=== PATIENT | female | born 1935 | race Caucasian/White ===

== ENCOUNTER 2022-08-05 06:07 | Observation (INO) | payer MEDICARE ==
--- NOTE | 2022-08-05 06:42 | ERPHSYRPT ---
- History of Present Illness Source: patient Exam Limitations: no limitations Occurred: this morning Quality: sharpness Severity of Pain-Max: mild (To moderate) Severity of Pain-Current: none Extremities Pain Location: arm: left Modifying Factors: Improves With: nothing <CLOTILDE BRISCOE - Last Filed: 08/05/22 07:40> <CHIKI ARREOLA - Last Filed: 08/05/22 12:56> - History of Present Illness Time Seen by Provider: 08/05/22 06:42 Physician History: This is a 86-year-old white female who has no history of coronary artery disease but has a family history of myocardial infarction's. The patient woke up out of his sleep at approximately 2 AM with pain in the posterior aspect of her left humerus. This symptom is similar to her mother and her brother who had a heart attack and this was the symptom they complained about. Patient denies shortness of breath. Patient denies chest pain. Patient denies any injury to that left upper extremity. Patient also was concerned because she was going out of town Sunday. At the time of this examination, the patient states that the pain in her left arm has resolved. Patient has a history of hypertension, hyperlipidemia and hypothyroidism. (CLOTILDE BRISCOE) Allergies/Adverse Reactions: amoxicillin [From Augmentin] Allergy (Verified 08/05/22 07:30) cefdinir [From Omnicef] Allergy (Verified 08/05/22 07:30) clarithromycin [From Biaxin] Allergy (Verified 08/05/22 07:30) clavulanic acid [From Augmentin] Allergy (Verified 08/05/22 07:30) levofloxacin [From Levaquin] Allergy (Verified 08/05/22 07:30) muscle relaxer Allergy (Uncoded 08/05/22 07:32) Travel Risk - International Travel Have you traveled outside of the country in past 3 weeks: No - Coronavirus Screening Are you exhibiting any of the following symptoms?: No Close contact with a COVID-19 positive Pt in past 14-21 Days: No <CLOTILDE BRISCOE - Last Filed: 08/05/22 07:40> - Review of Systems Constitutional: No Symptoms Eyes: No Symptoms Ears, Nose, & Throat: No Symptoms Respiratory: No Symptoms Cardiac: No Symptoms Abdominal/Gastrointestinal: No Symptoms Genitourinary Symptoms: No Symptoms Musculoskeletal: Other (Left arm pain) Skin: No Symptoms Neurological: No Symptoms Psychological: No Symptoms Endocrine: No Symptoms Hematologic/Lymphatic: No Symptoms Immunological/Allergic: No Symptoms All Other Systems: Reviewed and Negative <CLOTILDE BRISCOE - Last Filed: 08/05/22 07:40> - Past Medical History Pertinent Past Medical History: Yes Neurological History: No Pertinent History ENT History: No Pertinent History Cardiac History: No Pertinent History Respiratory History: No Pertinent History Endocrine Medical History: No Pertinent History Musculoskeletal History: No Pertinent History GI Medical History: No Pertinent History History: No Pertinent History Psycho-Social History: No Pertinent History - Past Surgical History Past Surgical History: Yes <CLOTILDE BRISCOE - Last Filed: 08/05/22 07:40> - Physical Exam General Appearance: no apparent distress, alert, anxiety Eyes, Ears, Nose, Throat Exam: normal ENT inspection, moist mucous membranes Neck Exam: normal inspection, non-tender, supple, full range of motion Cardiovascular/Respiratory Exam: chest non-tender, normal breath sounds, regular rate/rhythm, heart sounds normal, no respiratory distress Abdominal Exam: non-tender Back Exam: normal inspection, normal range of motion, No CVA tenderness, No vertebral tenderness Shoulder Exam: normal inspection, non-tender, no evidence of injury, normal ROM Elbow/Forearm Exam: normal inspection, non-tender, no evidence of injury, normal ROM Wrist Exam: normal inspection, non-tender, no evidence of injury, normal ROM Hand Exam: normal inspection, non-tender, no evidence of injury, normal ROM Neuro/Tendon Exam: normal sensation, normal motor functions, normal tendon functions Mental Status Exam: alert, oriented x 3, cooperative Skin Exam: normal color, warm, dry SpO2 Interpretation: normal O2 Delivery: Room Air <CLOTILDE BRISCOE - Last Filed: 08/05/22 07:40> - Nursing Vital Signs Nursing Vital Signs: Initial Vital Signs Blood Pressure 154/61 08/05/22 07:10 O2 Sat by Pulse Oximetry 96 08/05/22 07:10 Pain Scale Pain Intensity 0 - Course Nursing assessment & vital signs reviewed: Yes EKG Interpreted by Me: RATE (79), Sinus Rhythm, Left Rumney Deviation, NORMAL QRS, NORMAL ST-T, Other (No acute ischemic changes on today's twelve-lead EKG. There is a prolonged RI interval present.) <CLOTILDE BRISCOE - Last Filed: 08/05/22 07:40> Ordered Tests: Active Orders 24 hr Category Date Time Status Panel Monitor STAT Care 08/05/22 07:47 Active EKG-ER Only STAT Care 08/05/22 07:47 Active IV Insertion STAT Care 08/05/22 07:47 Active Pulse Oximetry (ED) STAT Care 08/05/22 07:47 Active CHEST 1 VIEW (PORTABLE) Stat Exams 08/05/22 07:47 Completed CHEST WITH CONTRAST [CT] Stat Exams 08/05/22 08:36 Taken BNPII [NT PRO BNPII] Stat Lab 08/05/22 Completed CBC W DIFF Stat Lab 08/05/22 08:00 Completed CMP Stat Lab 08/05/22 08:00 Completed D-DIMER QUANTITATIVE Stat Lab 08/05/22 08:00 Completed TROPONIN Q4H Lab 08/05/22 08:00 Completed TROPONIN Q4H Lab 08/05/22 11:43 Completed TROPONIN Q4H Lab 08/05/22 16:00 Ordered Medication Summary Discontinued Medications Generic Name Dose Route Start Last Admin Trade Name Freq PRN Reason Stop Dose Admin Aspirin 324 mg 08/05/22 10:30 08/05/22 10:40 Aspirin 81 Mg Tab.Chew PO 08/05/22 10:31 324 mg STAT ONE Administration Lab/Rad Data: Laboratory Result Diagrams 08/05/22 08:00 08/05/22 08:00 Laboratory Results 08/05/22 08/05/22 08/05/22 Range/Units Unknown 11:43 08:00 WBC (4.0-10.5) x10^3/uL RBC (4.1-5.4) x10^6/uL Hgb (12.0-16.0) g/dL Hct (35-47) % MCV (78-100) fL MCH (26-32) pg MCHC (32-36) g/dL RDW (11.5-14.0) % Plt Count (150-450) x10^3/uL MPV (7.5-11.0) fL Gran % (36.0-66.0) % Immature Gran % (Auto) (0.00-0.4) % Nucleat RBC Rel Count (0.00-0.1) % Eos # (Auto) (0-0.5) x10^3/uL Immature Gran # (Auto) (0.00-0.03) x10^3u/L Absolute Lymphs (auto) (1.0-4.6) x10^3/uL Absolute Monos (auto) (0.0-1.3) x10^3/uL Absolute Nucleated RBC (0.00-0.01) x10^3u/L Lymphocytes % (24.0-44.0) % Monocytes % (0.0-12.0) % Eosinophils % (0.00-5.0) % Basophils % (0.0-0.4) % Absolute Granulocytes (1.4-6.9) x10^3/uL Basophils # (0-0.4) x10^3/uL D-Dimer (0.0-0.50) mg/L Sodium (137-145) mmol/L Potassium (3.5-5.1) mmol/L Chloride (98-107) mmol/L Carbon Dioxide (22-30) mmol/L Anion Gap (5-15) MEQ/L BUN (7-17) mg/dL Creatinine (0.52-1.04) mg/dL Estimated GFR ML/MIN Glucose (74-106) mg/dL Calcium (8.4-10.2) mg/dL Total Bilirubin (0.2-1.3) mg/dL AST (14-36) U/L ALT (0-35) U/L Alkaline Phosphatase (38-126) U/L Troponin I < 0.012 < 0.012 (0.000-0.034) ng/mL NT-Pro-B Natriuret Pep 309 (<300) pg/mL Serum Total Protein (6.3-8.2) g/dL Albumin (3.5-5.0) g/dL 08/05/22 08/05/22 08/05/22 Range/Units 08:00 08:00 08:00 WBC 4.0 (4.0-10.5) x10^3/uL RBC 3.60 L (4.1-5.4) x10^6/uL Hgb 10.8 L (12.0-16.0) g/dL Hct 32.8 L (35-47) % MCV 91.1 (78-100) fL MCH 30.0 (26-32) pg MCHC 32.9 (32-36) g/dL RDW 13.0 (11.5-14.0) % Plt Count 242 (150-450) x10^3/uL MPV 8.8 (7.5-11.0) fL Gran % 55.2 (36.0-66.0) % Immature Gran % (Auto) 0.3 (0.00-0.4) % Nucleat RBC Rel Count 0.0 (0.00-0.1) % Eos # (Auto) 0.22 (0-0.5) x10^3/uL Immature Gran # (Auto) 0.01 (0.00-0.03) x10^3u/L Absolute Lymphs (auto) 1.01 (1.0-4.6) x10^3/uL Absolute Monos (auto) 0.42 (0.0-1.3) x10^3/uL Absolute Nucleated RBC 0.00 (0.00-0.01) x10^3u/L Lymphocytes % 25.4 (24.0-44.0) % Monocytes % 10.6 (0.0-12.0) % Eosinophils % 5.5 H (0.00-5.0) % Basophils % 3.0 (0.0-0.4) % Absolute Granulocytes 2.19 (1.4-6.9) x10^3/uL Basophils # 0.12 (0-0.4) x10^3/uL D-Dimer 1.00 H* (0.0-0.50) mg/L Sodium 137 (137-145) mmol/L Potassium 3.6 (3.5-5.1) mmol/L Chloride 101 (98-107) mmol/L Carbon Dioxide 27 (22-30) mmol/L Anion Gap 12.4 (5-15) MEQ/L BUN 14 (7-17) mg/dL Creatinine 0.70 (0.52-1.04) mg/dL Estimated GFR > 60.0 ML/MIN Glucose 104 (74-106) mg/dL Calcium 9.6 (8.4-10.2) mg/dL Total Bilirubin 0.50 (0.2-1.3) mg/dL AST 39 H (14-36) U/L ALT 22 (0-35) U/L Alkaline Phosphatase 51 (38-126) U/L Troponin I (0.000-0.034) ng/mL NT-Pro-B Natriuret Pep (<300) pg/mL Serum Total Protein 6.7 (6.3-8.2) g/dL Albumin 4.0 (3.5-5.0) g/dL - Progress Progress: improved Counseled pt/family regarding: lab results, diagnosis, need for follow-up, rad results <CLOTILDE BRISCOE - Last Filed: 08/05/22 07:40> - Progress Discussed with : Tim <CHIKI ARREOLA - Last Filed: 08/05/22 12:56> - Progress Progress Note: 08/05/22 07:44 Patient's care will be transferred to Dr. Arreola at shift change. He will follo w-up on the test results and make final disposition. (CLOTILDE BRISCOE) 08/05/22 12:53 Patient is checked out to me at shift change from Dr. Briscoe with pending work- up. Patient presented with left arm pain off and on since last night. Reports minimal discomfort currently. The EKG did not show ST elevations and has negative troponins. Chest x-ray negative for any acute cardiopulmonary findings. Patient does have elevated D-dimers but CTA is negative for PE or any other acute cardiopulmonary pathology. Patient has cardiac cath done long time ago, does not have any cardiac work-up done in the recent past. Does have risk factors for CAD, discussed with Dr. Davis and patient is being admitted for observation. (CHIKI ARREOLA) Medical Desision Making - Independent Historian Additional History obtained from: Child - Discussion of managment Care discussed with:: hospitalist (Dr. Davis) Reviewed:: Test results, Need for additional workup Agreed on:: Treatment plan, place in obs Will see patient: in hospital - Diagnostic Testing Diagnostic test were ordered, analyzed, and reviewed by me: Yes Radiological Interpretation: Reviewed by me, Teleradiologist Report - Risk of complications The pt has a high risk of morbidity or mortality based on: Decision regarding hospitilization or escalation of hosp level of care <CHIKI ARREOLA - Last Filed: 08/05/22 12:56> - Departure Departure Disposition: Home Critical Care Time: No <CLOTILDE BRISCOE - Last Filed: 08/05/22 07:40> <CHIKI ARREOLA - Last Filed: 08/05/22 12:56> - Departure Clinical Impression: Left arm pain, Chest pain, rule out acute myocardial infarction Condition: Stable Referrals: ANDREW SILVA [NON-STAFF PHY W/O PRIVILEGES] - Follow up/PCP as directed
--- NOTE | 2022-08-05 08:04 | XRAY ---
Indication: Chronic short of breath. Comparison: None Portable chest hyperinflated with minimal left lower lung fibrosis/scarring. No focal infiltrate, consolidation, or large effusion. Heart not enlarged with mitral valve calcifications. Bony thorax intact with osteopenia, mild/moderate degenerative changes, and mild double curvature scoliosis. Impression: Nonacute chest with chronic features.
[2022-08-05 08:05] LABS: Absolute Neutrophil Ct (ANC) 2.19 x10^3/uL (1.4-6.9); Basophil (Absolute #) 0.12 x10^3/uL (0-0.4); Eosinophil % 5.5 % (0.00-5.0); Eosinophil (Absolute #) 0.22 x10^3/uL (0-0.5); Hematocrit 32.8 % (35-47); Hemoglobin 10.8 g/dL (12.0-16.0); IMMATURE GRAN # 0.01 x10^3u/L (0.00-0.03); IMMATURE GRAN % 0.3 % (0.00-0.4); Lymphocyte (Absolute #) 1.01 x10^3/uL (1.0-4.6); Lymphocytes % 25.4 % (24.0-44.0); Mean Cell Volume 91.1 fL (78-100); Mean Corpuscular Hgb Concent. 32.9 g/dL (32-36); Mean Platelet Volume 8.8 fL (7.5-11.0); Monocyte (Absolute #) 0.42 x10^3/uL (0.0-1.3); Monocytes % 10.6 % (0.0-12.0); Neutrophil % 55.2 % (36.0-66.0); Platelet Count 242 x10^3/uL (150-450)
[2022-08-05 08:17] LABS: ALKALINE PHOSPHATASE 51 U/L (38-126); ANION GAP 12.4 MEQ/L (5-15); BLOOD UREA NITROGEN 14 mg/dL (7-17); CHLORIDE 101 mmol/L (98-107); Calcium 9.6 mg/dL (8.4-10.2); Carbon Dioxide 27 mmol/L (22-30); EST GLOMERULAR FILTRATION RATE > 60.0 ML/MIN; Glucose 104 mg/dL (74-106); Potassium 3.6 mmol/L (3.5-5.1); SGOT/AST 39 U/L (14-36); SGPT/ALT 22 U/L (0-35); SODIUM 137 mmol/L (137-145); Total Protein 6.7 g/dL (6.3-8.2)
[2022-08-05] MEDS ORDERED: BABY ASPIRIN 81 MG CHEW PO ONE (10:30)
[2022-08-05] MEDS ORDERED: DUONEB 0.5-3 MG/3 ml Neb IH PRN (13:58)
[2022-08-05] MEDS ORDERED: TYLENOL 325 MG PO PRN (13:58)
[2022-08-05] MEDS ORDERED: Zofran 4 MG/2 ML VIAL IV PRN (13:58)
[2022-08-05] MEDS ORDERED: MORPHINE SULFATE 2 MG INJ IV PRN (13:58)
[2022-08-05] MEDS ORDERED: PROTONIX 40 MG IV IV SCH (16:00)
[2022-08-05] MEDS: Vitamin C 500 MG PO SCH (16:49)
[2022-08-05] MEDS: Zestril 20 MG PO SCH (16:50)
[2022-08-05] MEDS: Protonix 40MG Tablet PO SCH (16:50)
[2022-08-05] MEDS: SYNTHROID 125 MCG PO SCH (16:50)
[2022-08-05] MEDS: THERAGRAN MULTIVITAMIN PO SCH (16:50)
[2022-08-05] MEDS: Tums EX 750 MG PO SCH (16:51)
[2022-08-05] MEDS: CLARITIN 10 MG PO SCH (16:51)
--- NOTE | 2022-08-05 19:46 | XRAY ---
CLINICAL HISTORY:sob/PE? COMPARISON:None; TECHNIQUES:Axial CT images of pulmonary angiogram were obtained after administration of intravenous contrast; FINDINGS: The pulmonary arteries have a normal appearance with no fillings defects to suggest a pulmonary embolus. Mild cardiomegaly. No pericardial effusion. No aneurysmal dilatation of the thoracic aorta. Mild atherosclerotic changes in the thoracic aorta. Minimal atelectatic changes in the lung bases. No consolidation, pleural effusion or pneumothorax. No significant mediastinal, hilar, or axillary lymphadenopathy. No discrete chest wall mass. The trachea and bronchi are patent. Fatty infiltration of the liver. Status postcholecystectomy. Fatty infiltration of the pancreatic parenchyma. The rest of the visualized upper abdominal viscera appears grossly unremarkable. Degenerative changes in the visualized spine. IMPRESSION: 1. No definite evidence of pulmonary embolism. 2. No acute pulmonary abnormality. 3. Mild cardiomegaly. Echocardiographic correlation. For further evaluation. Electronically Signed by: Viola Eli MD. (08/05/2022 08:47:57 CLEANING ATTENDANT)
[2022-08-05] MEDS: TIMOPTIC 0.5% 5 ML OPHTHALMIC OP SCH (21:29)
[2022-08-05] MEDS ORDERED: NON-FORMULARY ITEM (Pravastatin Sodium [Pravastatin Sodium] 80 MG Tablet) PO SCH (22:00)
[2022-08-05] MEDS ORDERED: ZOCOR 20MG PO SCH (22:00)
[2022-08-05] MEDS ORDERED: ECOTRIN 81 MG PO SCH (22:00)
[2022-08-05] MEDS ORDERED: ASPIRIN 81 MG PO SCH (22:00)
[2022-08-06 06:05] LABS: Absolute Neutrophil Ct (ANC) 1.79 x10^3/uL (1.4-6.9); BASOPHIL % 2.3 % (0.0-0.4); Basophil (Absolute #) 0.09 x10^3/uL (0-0.4); Eosinophil % 8.6 % (0.00-5.0); Eosinophil (Absolute #) 0.34 x10^3/uL (0-0.5); Hematocrit 29.6 % (35-47); Lymphocytes % 32.7 % (24.0-44.0); Mean Corpuscular Hemoglobin 30.4 pg (26-32); Mean Corpuscular Hgb Concent. 33.8 g/dL (32-36); Mean Platelet Volume 9.1 fL (7.5-11.0); Monocyte (Absolute #) 0.45 x10^3/uL (0.0-1.3); Monocytes % 11.3 % (0.0-12.0); Neutrophil % 45.1 % (36.0-66.0); Platelet Count 234 x10^3/uL (150-450); Red Blood Count 3.29 x10^6/uL (4.1-5.4); Red Cell Distribution Width 13.5 % (11.5-14.0)
[2022-08-06 06:13] LABS: ALBUMIN 3.3 g/dL (3.5-5.0); ALKALINE PHOSPHATASE 47 U/L (38-126); ANION GAP 9.5 MEQ/L (5-15); BLOOD UREA NITROGEN 12 mg/dL (7-17); CHLORIDE 99 mmol/L (98-107); Carbon Dioxide 28 mmol/L (22-30); Creatinine 1 0.75 mg/dL (0.52-1.04); EST GLOMERULAR FILTRATION RATE > 60.0 ML/MIN; Glucose 94 mg/dL (74-106); Potassium 3.5 mmol/L (3.5-5.1); SGOT/AST 36 U/L (14-36); SGPT/ALT 19 U/L (0-35); SODIUM 132 mmol/L (137-145); Total Protein 5.8 g/dL (6.3-8.2)
[2022-08-06 07:27] VITALS: BP 120/59; PULSE 58; O2SAT 96
[2022-08-06] MEDS: hydroDIURIL 25 MG PO SCH ×4 (07:43→09:04)
[2022-08-06] MEDS: TIMOPTIC 0.5% 5 ML OPHTHALMIC OP SCH ×2 (07:43→09:03)
[2022-08-06] MEDS: NORVASC 5 MG PO SCH ×2 (07:43→09:04)
[2022-08-06] MEDS: Xalatan OP SCH ×2 (07:44→09:03)
[2022-08-06] MEDS: SYNTHROID 125 MCG PO SCH (09:00)
[2022-08-06] MEDS: Vitamin C 500 MG PO SCH (09:00)
[2022-08-06] MEDS: THERAGRAN MULTIVITAMIN PO SCH (09:00)
[2022-08-06] MEDS: Protonix 40MG Tablet PO SCH (09:01)
[2022-08-06] MEDS: CLARITIN 10 MG PO SCH (09:01)
[2022-08-06] MEDS: Tums EX 750 MG PO SCH (09:02)
[2022-08-06] MEDS: Zestril 20 MG PO SCH (09:04)
[2022-08-06] MEDS ORDERED: NON-FORMULARY ITEM (Ascorbic Acid [Vitamin C] 1,000 MG Tablet) PO SCH (10:00)
[2022-08-06] MEDS ORDERED: NON-FORMULARY ITEM (Omeprazole [Omeprazole] 20 MG Capsule.Dr) PO SCH (10:00)
[2022-08-06] MEDS ORDERED: NON-FORMULARY ITEM (Cetirizine Hcl [Zyrtec] 10 MG Capsule) PO SCH (10:00)
[2022-08-06] MEDS ORDERED: NON-FORMULARY ITEM (Lisinopril [Lisinopril] 40 MG Tablet) PO SCH (10:00)
[2022-08-06] MEDS ORDERED: NON-FORMULARY ITEM (Amlodipine Besylate [Norvasc] 2.5 MG Tablet) PO SCH (10:00)
[2022-08-06] MEDS ORDERED: NON-FORMULARY ITEM (Multivitamin [Multivitamin] 1 EACH Tablet) PO SCH (10:00)
[2022-08-06] MEDS ORDERED: NON-FORMULARY ITEM (Calcium Carbonate [Calcium] 500 MG Tablet) PO SCH (10:00)
--- NOTE | 2022-08-29 22:52 | PCM.SSS ---
History of Present Illness - Chief Complaint Chief Complaint: chest pain,left arm pain Date: 08/06/22 History of Present Illness: is an 86-year-old white female who has no history of coronary artery disease but has a family history of myocardial infarction's. The patient woke up out of his sleep at approximately 2 AM with pain in the posterior aspect of her left humerus. This symptom is similar to her mother and her brother who had a heart attack and this was the symptom they complained about. Patient denies shortness of breath. Patient denies chest pain. Patient denies any injury to that left upper extremity. Patient also was concerned because she was going out of town Sunday. At the time of this examination, the patient states that the pain in her left arm has resolved. Patient has a history of hypertension, hyperlipidemia and hypothyroidism. - Review of Systems Constitutional: No Fever, No Chills Eyes: No Symptoms Ears, Nose, & Throat: No Symptoms Respiratory: No Cough, No Short Of Breath Cardiac: No Chest Pain, No Edema, No Syncope Abdominal/Gastrointestinal: No Abdominal Pain, No Nausea, No Vomiting, No Diarrhea Genitourinary Symptoms: No Dysuria Musculoskeletal: Other (posterior left arm pain), No Back Pain, No Neck Pain Skin: No Rash Neurological: No Dizziness, No Focal Weakness, No Sensory Changes Psychological: No Symptoms Endocrine: No Symptoms Hematologic/Lymphatic: No Symptoms Immunological/Allergic: No Symptoms Medications & Allergies Home Medications: Home Medication List Amlodipine Besylate [Norvasc] 2.5 mg PO DAILY 08/05/22 [History Confirmed 08/05/22] Ascorbic Acid [Vitamin C] 1,000 mg PO DAILY 08/05/22 [History Confirmed 08/05/22] Aspirin [Aspirin EC] 81 mg PO HS 08/05/22 [History Confirmed 08/05/22] Calcium Carbonate [Calcium] 1,000 mg PO DAILY 08/05/22 [History Confirmed 08/05/22] Cetirizine HCl [Zyrtec] 10 mg PO DAILY 08/05/22 [History Confirmed 08/05/22] Latanoprost 1 drop OP DAILY 08/05/22 [History Confirmed 08/05/22] Levothyroxine Sodium 125 mcg PO DAILY 08/05/22 [History Confirmed 08/05/22] Multivitamin 1 each PO DAILY 08/05/22 [History Confirmed 08/05/22] Omeprazole 20 mg PO DAILY 08/05/22 [History Confirmed 08/05/22] Pravastatin Sodium 80 mg PO HS 08/05/22 [History Confirmed 08/05/22] Timolol Maleate 0.5% Eye [Timoptic 0.5% 5 ml Ophthalmic] 1 drop OP BID 08/05/22 [History Confirmed 08/05/22] Triamterene/Hydrochlorothiazid [Triamterene-Hctz 75-50 mg Tab] 1 each PO DAILY 08/05/22 [History Confirmed 08/05/22] hydroCHLOROthiazide [Hydrochlorothiazide] 25 mg PO DAILY 08/05/22 [History Confirmed 08/05/22] lisinopriL [Lisinopril] 40 mg PO DAILY 08/05/22 [History Confirmed 08/05/22] Nitroglycerin 0.4 mg Tablet [Nitrostat 0.4 MG Tablet] 0.4 mg SL Q5MIN PRN MR X 3 PRN 30 Days #30 08/06/22 [Rx] Allergies/Adverse Reactions: Allergies Allergy/AdvReac Type Severity Reaction Status Date / Time amoxicillin [From Augmentin] Allergy Verified 08/05/22 07:30 cefdinir [From Omnicef] Allergy Verified 08/05/22 07:30 clarithromycin [From Biaxin] Allergy Verified 08/05/22 07:30 clavulanic acid Allergy Verified 08/05/22 07:30 [From Augmentin] levofloxacin [From Levaquin] Allergy Verified 08/05/22 07:30 muscle relaxer Allergy Uncoded 08/05/22 07:32 - Past Medical History Past Medical History: Yes Neurological History: No Pertinent History ENT History: Glaucoma Cardiac History: Angina, Hypertension Respiratory History: No Pertinent History Endocrine Medical History: Hypothyroidism Musculoskelatal History: Arthritis, Osteoarthritis GI Medical History: Diverticulitis History: No Pertinent History Pyscho-Social History: No Pertinent History Reproductive Disorders: No Pertinent History - Female History Are you now?: No - Past Surgical History Past Surgical History: Yes Neuro Surgical History: No Pertinent History Cardiac History: No Pertinent History Respiratory Surgery: No Pertinent History GI Surgical History: Cholecystectomy Genitourinary Surgical Hx: No Pertinent History Musculskeletal Surgical Hx: No Pertinent History Female Surgical History: No Pertinent History - Social History Smoking Status: Never smoker Exposure to second hand smoke: No Alcohol: None Drug Use: none - Physical Exam General Appearance: no apparent distress, alert Neurologic Exam: alert, oriented x 3, cooperative, normal mood/affect, nml cerebellar function, nml station & gait, sensation nml, No motor deficits Eye Exam: PERRL/EOMI, eyes nml inspection Ears, Nose, Throat Exam: normal ENT inspection, TMs normal, pharynx normal, moist mucous membranes Neck Exam: normal inspection, non-tender, supple, full range of motion Respiratory Exam: normal breath sounds, lungs clear, No respiratory distress Cardiovascular Exam: regular rate/rhythm, normal heart sounds, normal peripheral pulses Gastrointestinal/Abdomen Exam: soft, normal bowel sounds, No tenderness, No mass Back Exam: normal inspection, normal range of motion, No CVA tenderness, No vertebral tenderness Extremity Exam: normal inspection, normal range of motion, pelvis stable Skin Exam: normal color, warm, dry, No rash Lymphatic Exam: No adenopathy Assessment/Plan (1) Chest pain, rule out acute myocardial infarction Status: Acute Code(s): R07.9 - CHEST PAIN, UNSPECIFIED (2) Left arm pain Status: Acute Code(s): M79.602 - PAIN IN LEFT ARM Hospital Summary - Hospital Course Hospital Course: Pt. admitted for symptoms and family history of similar pain with ACS, NV was ruled out and patient with no further pain was ready for discharge with further evaluation in near future including lexiscan. Pt. ready for discharge to home. - Vitals & Intake/Output Vital Signs: Vital Signs Temperature 97.9 F 08/06/22 07:27 Pulse Rate 58 L 08/06/22 07:27 Respiratory Rate 16 08/06/22 07:27 Blood Pressure 120/59 08/06/22 07:27 O2 Sat by Pulse Oximetry 96 08/06/22 07:27 - Lab Result Diagrams: 08/06/22 05:20 08/06/22 05:20 - Procedures and Test Procedures and Tests throughout Hospitalization: Therapy Orders & Screens 08/06/22 10:42 STRESS TEST [Schedule Outpt Stress Test] ROUTINE Comment: Diagnosis: chest pain,left arm pain Schedule Outpt Stress Test: Cardiolyte Stress Test Cardiolite Stress Test: Cardiolite Lexiscan 08/06/22 11:35 Cardiolite Stress Test-RT ONCE Comment: Reason For Exam: Diagnosis: chest pain,left arm pain - Discharge Discharge Date: 08/06/22 Disposition: Home, Self-Care Condition: Stable Prescriptions: New Nitroglycerin 0.4 mg Tablet [Nitrostat 0.4 MG Tablet] 0.4 mg SL Q5MIN PRN MR X 3 PRN 30 Days #30 PRN Reason: Chest Pain Continue Timolol Maleate 0.5% Eye [Timoptic 0.5% 5 ml Ophthalmic] 1 drop OP BID Levothyroxine Sodium 125 mcg PO DAILY Pravastatin Sodium 80 mg PO HS lisinopriL [Lisinopril] 40 mg PO DAILY Omeprazole 20 mg PO DAILY hydroCHLOROthiazide [Hydrochlorothiazide] 25 mg PO DAILY Latanoprost 1 drop OP DAILY Cetirizine HCl [Zyrtec] 10 mg PO DAILY Amlodipine Besylate [Norvasc] 2.5 mg PO DAILY Calcium Carbonate [Calcium] 1,000 mg PO DAILY Ascorbic Acid [Vitamin C] 1,000 mg PO DAILY Multivitamin 1 each PO DAILY Aspirin [Aspirin EC] 81 mg PO HS Triamterene/Hydrochlorothiazid [Triamterene-Hctz 75-50 mg Tab] 1 each PO DAILY Outpatient Orders: Stress Test: Cyndy Facility: [facility], Location: RESPIRATORY THERAPY Instructions: Chest Pain (DC), Nitroglycerin
== END 2022-08-06 11:50 | disposition home or self-care (01) ==
LOC: ED 06:07 → MED SURG 13:57
PROVIDERS: ADMIT Family Medicine; ATTEND Family Medicine
DX: R07.9 Chest pain, unspecified (principal); M79.602 Pain in left arm; I10 Essential (primary) hypertension; E78.5 Hyperlipidemia, unspecified; E03.9 Hypothyroidism, unspecified; Z82.49 Family history of ischemic heart disease and other diseases of the circulatory system; Z79.899 Other long term (current) drug therapy; Z20.828 Contact with and (suspected) exposure to other viral communicable diseases
CPT/HCPCS: 36000; 36415; 71045; 71260; 80053; 83880; 84484; 85025; 85379; 93005; 93041; 93268; 94760; 99285; A9270-GY; G0378

== ENCOUNTER 2023-03-09 14:05 | Emergency (ER) | payer MEDICARE, OTHER ==
--- NOTE | 2023-03-09 14:09 | ERPHSYRPT ---
- History of Present Illness Time Seen by Provider: 03/09/23 14:09 Source: patient, family Exam Limitations: no limitations Physician History: This is an 87-year-old white female patient who had multiple complaints including left anterior shoulder pain, left arm pain, nausea, hypertension and fatigue. Patient stated the symptoms of the left anterior shoulder pain lasted about 45 minutes. Patient took a nitroglycerin tablet at 8 AM. Patient reports that her systolic blood pressure was 190 before taking the nitroglycerin. The subsequent reading was 170. Upon arrival to the emergency department, her systolic blood pressure is 145. She does have some nausea. She denies chest pain. She denies shortness of breath. She denies abdominal pain. She has not had any diarrhea. Patient has a history of hypertension, hyperlipidemia, chronic angina, hypothyroidism, arthritis and history of diverticulitis. Patient's mill tender washing is Dr. Salgado Timing/Duration: today Severity: mild Associated Symptoms: nausea, weakness, No abdominal pain, No shortness of breath, No cough, No chest pain Allergies/Adverse Reactions: amoxicillin [From Augmentin] Allergy (Verified 03/09/23 14:37) cefdinir [From Omnicef] Allergy (Verified 03/09/23 14:37) clarithromycin [From Biaxin] Allergy (Verified 03/09/23 14:37) clavulanic acid [From Augmentin] Allergy (Verified 03/09/23 14:37) levofloxacin [From Levaquin] Allergy (Verified 03/09/23 14:37) muscle relaxer Allergy (Uncoded 03/09/23 14:37) Home Medications: Amlodipine Besylate [Norvasc] 2.5 mg PO DAILY 08/05/22 [History] Aspirin [Aspirin EC] 81 mg PO HS 08/05/22 [History] Calcium Carbonate [Calcium] 1,000 mg PO DAILY 08/05/22 [History] Cetirizine HCl [Zyrtec] 10 mg PO DAILY 08/05/22 [History] Levothyroxine Sodium 125 mcg PO DAILY 08/05/22 [History] Multivitamin 1 each PO DAILY 08/05/22 [History] Omeprazole 20 mg PO DAILY 08/05/22 [History] Pravastatin Sodium 80 mg PO HS 08/05/22 [History] Timolol Maleate 0.5% Eye [Timoptic 0.5% 5 ml Ophthalmic] 1 drop OP BID 08/05/22 [History] hydroCHLOROthiazide [Hydrochlorothiazide] 25 mg PO DAILY 08/05/22 [History] Losartan Potassium 25 mg PO DAILY 03/09/23 [History] Hx Tetanus, Diphtheria Vaccination/Date Given: No Hx Influenza Vaccination/Date Given: Yes Hx Pneumococcal Vaccination/Date Given: Yes Travel Risk - International Travel Have you traveled outside of the country in past 3 weeks: No - Coronavirus Screening Are you exhibiting any of the following symptoms?: Yes Symptoms: Headaches/Body Aches/Fatigue Close contact with a COVID-19 positive Pt in past 14-21 Days: No - Vaccine Status Have you recieved a Covid-19 vaccination: Yes Professional Athlete: Unknown - Vaccination Dates Dates if Unknown: ? - Review of Systems Constitutional: Weakness Eyes: No Symptoms Ears, Nose, & Throat: No Symptoms Respiratory: No Symptoms Cardiac: No Symptoms Abdominal/Gastrointestinal: Nausea Genitourinary Symptoms: No Symptoms Musculoskeletal: No Symptoms Skin: No Symptoms Neurological: No Symptoms Psychological: No Symptoms Endocrine: No Symptoms Hematologic/Lymphatic: No Symptoms Immunological/Allergic: No Symptoms All Other Systems: Reviewed and Negative - Past Medical History Pertinent Past Medical History: Yes Neurological History: No Pertinent History ENT History: Glaucoma Cardiac History: Angina, Hypertension Respiratory History: No Pertinent History Endocrine Medical History: Hypothyroidism Musculoskeletal History: Arthritis, Osteoarthritis GI Medical History: Diverticulitis History: No Pertinent History Psycho-Social History: No Pertinent History Female Reproductive Disorders: No Pertinent History - Past Surgical History Past Surgical History: Yes Neuro Surgical History: No Pertinent History Cardiac: No Pertinent History Respiratory: No Pertinent History Gastrointestinal: Cholecystectomy Genitourinary: No Pertinent History Musculoskeletal: No Pertinent History Female Surgical History: No Pertinent History - Social History Smoking Status: Never smoker Exposure to second hand smoke: No Drug Use: none Patient Lives Alone: No - Nursing Vital Signs Nursing Vital Signs: Initial Vital Signs Pulse Rate 71 03/09/23 14:26 Respiratory Rate 16 03/09/23 14:26 Blood Pressure 173/57 03/09/23 14:26 O2 Sat by Pulse Oximetry 95 03/09/23 14:26 Pain Scale Pain Intensity 0 - Physical Exam General Appearance: no apparent distress, alert Eye Exam: PERRL/EOMI, eyes nml inspection Ears, Nose, Throat Exam: normal ENT inspection, moist mucous membranes Neck Exam: normal inspection, non-tender, supple, full range of motion Respiratory Exam: normal breath sounds, lungs clear, respiratory distress, airw ay intact, No chest tenderness Cardiovascular Exam: regular rate/rhythm, normal heart sounds, normal peripheral pulses Gastrointestinal/Abdomen Exam: soft, normal bowel sounds, No tenderness Pelvic Exam: not done Rectal Exam: not done Back Exam: normal inspection, normal range of motion, No CVA tenderness, No vertebral tenderness Extremity Exam: normal inspection, normal range of motion, pelvis stable Neurologic Exam: alert, oriented x 3, cooperative, mail order clerk II-XII nml as tested, normal mood/affect, nml cerebellar function, nml station & gait, sensation nml Skin Exam: normal color, warm, dry Lymphatic Exam: No adenopathy SpO2 Interpretation: normal O2 Delivery: Room Air - Course Nursing assessment & vital signs reviewed: Yes EKG Interpreted by Me: RATE (69), Left [place] Deviation, NORMAL INTERVALS, Other (PVC. No acute ischemic changes.) Ordered Tests: Active Orders 24 hr Category Date Time Status EKG-ER Only STAT Care 03/09/23 14:53 Active IV Insertion STAT Care 03/09/23 14:53 Active Pulse Oximetry (ED) STAT Care 03/09/23 14:53 Active BLOOD CULTURE Stat Lab 03/09/23 14:54 Received CBC W DIFF Stat Lab 03/09/23 15:10 Completed CMP Stat Lab 03/09/23 15:10 Completed MONO SCREEN Stat Lab 03/09/23 Completed NT PRO BNPII Stat Lab 03/09/23 15:10 Completed PROTIME WITH INR Stat Lab 03/09/23 15:10 Completed TROPONIN Q4H Lab 03/09/23 15:10 Completed TROPONIN Q4H Lab 03/09/23 19:00 Ordered TROPONIN Q4H Lab 03/09/23 23:00 Ordered TSH, 3RD Generation Stat Lab 03/09/23 15:10 Completed UA W/RFX UR CULTURE Stat Lab 03/09/23 17:30 Completed Medication Summary Generic Name Dose Route Start Last Admin Trade Name Freq PRN Reason Stop Dose Admin Sodium Chloride 1,000 mls @ 100 mls/hr 03/09/23 15:00 03/09/23 15:07 Sodium Chloride 0.9% 1000 Ml IV 04/08/23 14:59 100 mls/hr .Q10H MLELISA Administration Discontinued Medications Generic Name Dose Route Start Last Admin Trade Name Huy PRN Reason Stop Dose Admin Aspirin 243 mg 03/09/23 14:53 03/09/23 15:07 Aspirin 81 Mg Tab.Chew PO 03/09/23 14:54 243 mg STAT ONE Administration Aspirin Confirm 03/09/23 15:05 Aspirin 81 Mg Tab.Chew Administered 03/09/23 15:06 Dose 243 mg .ROUTE .STK-MED ONE Ondansetron HCl 4 mg 03/09/23 15:35 03/09/23 15:40 Zofran 4 Mg/Udtablet Orally Disintegrating PO 03/09/23 15:36 4 mg STAT ONE Administration Ondansetron HCl Confirm 03/09/23 15:39 Zofran 4 Mg/Udtablet Orally Disintegrating Administered 03/09/23 15:40 Dose 4 mg .ROUTE .STK-MED ONE Lab/Rad Data: Laboratory Result Diagrams 03/09/23 15:10 03/09/23 15:10 Laboratory Results 03/09/23 03/09/23 03/09/23 Range/Units Unknown 17:30 15:10 WBC (4.0-10.5) x10^3/uL RBC (4.1-5.4) x10^6/uL Hgb (12.0-16.0) g/dL Hct (35-47) % MCV (78-100) fL MCH (26-32) pg MCHC (32-36) g/dL RDW (11.5-14.0) % Plt Count (150-450) x10^3/uL MPV (7.5-11.0) fL Gran % (36.0-66.0) % Immature Gran % (Auto) (0.00-0.4) % Nucleat RBC Rel Count (0.00-0.1) % Eos # (Auto) (0-0.5) x10^3/uL Immature Gran # (Auto) (0.00-0.03) x10^3u/L Absolute Lymphs (auto) (1.0-4.6) x10^3/uL Absolute Monos (auto) (0.0-1.3) x10^3/uL Absolute Nucleated RBC (0.00-0.01) x10^3u/L Lymphocytes % (24.0-44.0) % Monocytes % (0.0-12.0) % Eosinophils % (0.00-5.0) % Basophils % (0.0-0.4) % Absolute Granulocytes (1.4-6.9) x10^3/uL Basophils # (0-0.4) x10^3/uL PT (9.4-12.5) SECONDS INR (0.8-3.0) Sodium (137-145) mmol/L Potassium (3.5-5.1) mmol/L Chloride (98-107) mmol/L Carbon Dioxide (22-30) mmol/L Anion Gap (5-15) MEQ/L BUN (7-17) mg/dL Creatinine (0.52-1.04) mg/dL Estimated GFR ML/MIN Glucose (74-106) mg/dL Calcium (8.4-10.2) mg/dL Total Bilirubin (0.2-1.3) mg/dL AST (14-36) U/L ALT (0-35) U/L Alkaline Phosphatase (38-126) U/L Troponin I (0.000-0.034) ng/mL NT-Pro-B Natriuret Pep (<300) pg/mL Serum Total Protein (6.3-8.2) g/dL Albumin (3.5-5.0) g/dL Free T4 (0.78-2.19) ng/dL TSH 3rd Generation (0.47-4.68) mIU/L Urine Color Yellow (Yellow) Urine Appearance Clear (Clear) Urine pH 7.0 (4.6-8.0) Ur Specific [place] <=1.005 (1.005-1.030) Urine Protein Negative (Negative) Urine Glucose (UA) Negative (Negative) mg/dL Urine Ketones Negative (Negative) Urine Blood Negative (Negative) Urine Nitrite Negative (Negative) Urine Bilirubin Negative (Negative) Urine Urobilinogen 0.2 (0.2) mg/dL Ur Leukocyte Esterase Negative (Negative) U Hyaline Cast (Auto) NONE SEEN (0-2) /LPF Urine Microscopic RBC 0-2 (0-5) /HPF Urine Microscopic WBC 0-2 (0-5) /HPF Ur Epithelial Cells None Seen (None Seen) /HPF Urine Bacteria None Seen (None Seen) /HPF Urine Culture Reflexed NO (NO) Monoscreen NEGATIVE (NEGATIVE) Influenza Type A Ag NEGATIVE (NEGATIVE) Influenza Type B Ag NEGATIVE (NEGATIVE) RSV (PCR) NEGATIVE (NEGATIVE) SARS-CoV-2 (PCR) NEGATIVE (NEGATIVE) 03/09/23 03/09/23 03/09/23 Range/Units 15:10 15:10 15:10 WBC (4.0-10.5) x10^3/uL RBC (4.1-5.4) x10^6/uL Hgb (12.0-16.0) g/dL Hct (35-47) % MCV (78-100) fL MCH (26-32) pg MCHC (32-36) g/dL RDW (11.5-14.0) % Plt Count (150-450) x10^3/uL MPV (7.5-11.0) fL Gran % (36.0-66.0) % Immature Gran % (Auto) (0.00-0.4) % Nucleat RBC Rel Count (0.00-0.1) % Eos # (Auto) (0-0.5) x10^3/uL Immature Gran # (Auto) (0.00-0.03) x10^3u/L Absolute Lymphs (auto) (1.0-4.6) x10^3/uL Absolute Monos (auto) (0.0-1.3) x10^3/uL Absolute Nucleated RBC (0.00-0.01) x10^3u/L Lymphocytes % (24.0-44.0) % Monocytes % (0.0-12.0) % Eosinophils % (0.00-5.0) % Basophils % (0.0-0.4) % Absolute Granulocytes (1.4-6.9) x10^3/uL Basophils # (0-0.4) x10^3/uL PT 10.4 (9.4-12.5) SECONDS INR 0.95 (0.8-3.0) Sodium 136 L (137-145) mmol/L Potassium 3.5 (3.5-5.1) mmol/L Chloride 100 (98-107) mmol/L Carbon Dioxide 27 (22-30) mmol/L Anion Gap 12.7 (5-15) MEQ/L BUN 20 H (7-17) mg/dL Creatinine 0.79 (0.52-1.04) mg/dL Estimated GFR 73.3 ML/MIN Glucose 116 H (74-106) mg/dL Calcium 9.9 (8.4-10.2) mg/dL Total Bilirubin 0.60 (0.2-1.3) mg/dL AST 33 (14-36) U/L ALT 21 (0-35) U/L Alkaline Phosphatase 57 (38-126) U/L Troponin I < 0.012 (0.000-0.034) ng/mL NT-Pro-B Natriuret Pep 353 (<300) pg/mL Serum Total Protein 6.9 (6.3-8.2) g/dL Albumin 4.2 (3.5-5.0) g/dL Free T4 (0.78-2.19) ng/dL TSH 3rd Generation < 0.015 L (0.47-4.68) mIU/L Urine Color (Yellow) Urine Appearance (Clear) Urine pH (4.6-8.0) Ur Specific [place] (1.005-1.030) Urine Protein (Negative) Urine Glucose (UA) (Negative) mg/dL Urine Ketones (Negative) Urine Blood (Negative) Urine Nitrite (Negative) Urine Bilirubin (Negative) Urine Urobilinogen (0.2) mg/dL Ur Leukocyte Esterase (Negative) U Hyaline Cast (Auto) (0-2) /LPF Urine Microscopic RBC (0-5) /HPF Urine Microscopic WBC (0-5) /HPF Ur Epithelial Cells (None Seen) /HPF Urine Bacteria (None Seen) /HPF Urine Culture Reflexed (NO) Monoscreen (NEGATIVE) Influenza Type A Ag (NEGATIVE) Influenza Type B Ag (NEGATIVE) RSV (PCR) (NEGATIVE) SARS-CoV-2 (PCR) (NEGATIVE) 03/09/23 03/09/23 Range/Units 15:10 14:53 WBC 5.8 (4.0-10.5) x10^3/uL RBC 3.98 L (4.1-5.4) x10^6/uL Hgb 12.0 (12.0-16.0) g/dL Hct 36.3 (35-47) % MCV 91.2 (78-100) fL MCH 30.2 (26-32) pg MCHC 33.1 (32-36) g/dL RDW 12.4 (11.5-14.0) % Plt Count 249 (150-450) x10^3/uL MPV 9.8 (7.5-11.0) fL Gran % 67.5 H (36.0-66.0) % Immature Gran % (Auto) 0.2 (0.00-0.4) % Nucleat RBC Rel Count 0.0 (0.00-0.1) % Eos # (Auto) 0.04 (0-0.5) x10^3/uL Immature Gran # (Auto) 0.01 (0.00-0.03) x10^3u/L Absolute Lymphs (auto) 1.33 (1.0-4.6) x10^3/uL Absolute Monos (auto) 0.45 (0.0-1.3) x10^3/uL Absolute Nucleated RBC 0.00 (0.00-0.01) x10^3u/L Lymphocytes % 22.9 L (24.0-44.0) % Monocytes % 7.8 (0.0-12.0) % Eosinophils % 0.7 (0.00-5.0) % Basophils % 0.9 (0.0-0.4) % Absolute Granulocytes 3.92 (1.4-6.9) x10^3/uL Basophils # 0.05 (0-0.4) x10^3/uL PT (9.4-12.5) SECONDS INR (0.8-3.0) Sodium (137-145) mmol/L Potassium (3.5-5.1) mmol/L Chloride (98-107) mmol/L Carbon Dioxide (22-30) mmol/L Anion Gap (5-15) MEQ/L BUN (7-17) mg/dL Creatinine (0.52-1.04) mg/dL Estimated GFR ML/MIN Glucose (74-106) mg/dL Calcium (8.4-10.2) mg/dL Total Bilirubin (0.2-1.3) mg/dL AST (14-36) U/L ALT (0-35) U/L Alkaline Phosphatase (38-126) U/L Troponin I (0.000-0.034) ng/mL NT-Pro-B Natriuret Pep (<300) pg/mL Serum Total Protein (6.3-8.2) g/dL Albumin (3.5-5.0) g/dL Free T4 2.62 H (0.78-2.19) ng/dL TSH 3rd Generation (0.47-4.68) mIU/L Urine Color (Yellow) Urine Appearance (Clear) Urine pH (4.6-8.0) Ur Specific [place] (1.005-1.030) Urine Protein (Negative) Urine Glucose (UA) (Negative) mg/dL Urine Ketones (Negative) Urine Blood (Negative) Urine Nitrite (Negative) Urine Bilirubin (Negative) Urine Urobilinogen (0.2) mg/dL Ur Leukocyte Esterase (Negative) U Hyaline Cast (Auto) (0-2) /LPF Urine Microscopic RBC (0-5) /HPF Urine Microscopic WBC (0-5) /HPF Ur Epithelial Cells (None Seen) /HPF Urine Bacteria (None Seen) /HPF Urine Culture Reflexed (NO) Monoscreen (NEGATIVE) Influenza Type A Ag (NEGATIVE) Influenza Type B Ag (NEGATIVE) RSV (PCR) (NEGATIVE) SARS-CoV-2 (PCR) (NEGATIVE) - Progress Progress: improved, re-examined Progress Note: 03/09/23 18:47 Patient's medical issue is 1 of moderate complexity. The level of complexity and the workup performed is based on the review of the patient's past medical history, review of the patient's medication list, review the patient's drug allergy list, history of present illness and physical findings on examination. This patient's medical workup includes placement of intravenous line, infusion of intravenous saline, free T4, TSH, troponin level, twelve-lead EKG, urinalysis, CBC, CMP and viral swabs including monotest. 03/09/23 18:48 I reviewed the laboratory data. The patient appears to have hypothyroidism with a elevated free T4 and a low TSH. She will need to follow-up with her primary care physician to adjust these medications if indicated. Counseled pt/family regarding: lab results, diagnosis, need for follow-up Medical Desision Making - Independent Historian Additional History obtained from: Family - Diagnostic Testing Diagnostic test were ordered, analyzed, and reviewed by me: Yes - Risk of complications The pt has a mod risk of morbidity or mortality based on: Need for prescription drug management - Departure Departure Disposition: Home Clinical Impression: Hyperthyroidism Condition: Stable Critical Care Time: No Referrals: REFUGIO WEBB [Primary Care Provider] - Follow up/PCP as directed Additional Instructions: Drink plenty of clear liquids. Advance your diet slowly. Avoid fatty greasy spicy foods. Contact your primary care provider on 03/02/2023, to address your thyroid medication and to make a follow-up appointment in the next 3 to 5 days.
[2023-03-09] MEDS ORDERED: BABY ASPIRIN 81 MG CHEW PO ONE (14:53)
[2023-03-09] MEDS ORDERED: Sodium Chloride 0.9% 1000 ML 1,000 ML IV SCH (15:00)
[2023-03-09 15:02] VITALS: TEMP 98.1
[2023-03-09] MEDS ORDERED: BABY ASPIRIN 81 MG CHEW ONE (15:05)
[2023-03-09] MEDS ORDERED: Sodium Chloride 0.9% 1000 ML 1,000 ML ONE (15:06)
[2023-03-09 15:08] LABS: Absolute Neutrophil Ct (ANC) 3.92 x10^3/uL (1.4-6.9); BASOPHIL % 0.9 % (0.0-0.4); Basophil (Absolute #) 0.05 x10^3/uL (0-0.4); Eosinophil % 0.7 % (0.00-5.0); Eosinophil (Absolute #) 0.04 x10^3/uL (0-0.5); Hematocrit 36.3 % (35-47); IMMATURE GRAN # 0.01 x10^3u/L (0.00-0.03); IMMATURE GRAN % 0.2 % (0.00-0.4); Lymphocyte (Absolute #) 1.33 x10^3/uL (1.0-4.6); Lymphocytes % 22.9 % (24.0-44.0); Mean Cell Volume 91.2 fL (78-100); Mean Corpuscular Hemoglobin 30.2 pg (26-32); Mean Corpuscular Hgb Concent. 33.1 g/dL (32-36); Mean Platelet Volume 9.8 fL (7.5-11.0); Monocyte (Absolute #) 0.45 x10^3/uL (0.0-1.3); Monocytes % 7.8 % (0.0-12.0); Neutrophil % 67.5 % (36.0-66.0); Platelet Count 249 x10^3/uL (150-450); Red Blood Count 3.98 x10^6/uL (4.1-5.4); Red Cell Distribution Width 12.4 % (11.5-14.0); White Blood Count 5.8 x10^3/uL (4.0-10.5)
[2023-03-09 15:20] LABS: INR 0.95 (0.8-3.0); PROTIME 10.4 SECONDS (9.4-12.5)
[2023-03-09] MEDS ORDERED: ZOFRAN ODT 4 MG PO ONE (15:35)
[2023-03-09] MEDS ORDERED: ZOFRAN ODT 4 MG ONE (15:39)
[2023-03-09 15:51] LABS: ALBUMIN 4.2 g/dL (3.5-5.0); ALKALINE PHOSPHATASE 57 U/L (38-126); ANION GAP 12.7 MEQ/L (5-15); BLOOD UREA NITROGEN 20 mg/dL (7-17); CHLORIDE 100 mmol/L (98-107); Calcium 9.9 mg/dL (8.4-10.2); Carbon Dioxide 27 mmol/L (22-30); Creatinine 1 0.79 mg/dL (0.52-1.04); EST GLOMERULAR FILTRATION RATE 73.3 ML/MIN; Glucose 116 mg/dL (74-106); NT PRO BNPII 353 pg/mL (<300); Potassium 3.5 mmol/L (3.5-5.1); SGOT/AST 33 U/L (14-36); SGPT/ALT 21 U/L (0-35); SODIUM 136 mmol/L (137-145); TSH, 3RD Generation < 0.015 mIU/L (0.47-4.68); Total Protein 6.9 g/dL (6.3-8.2)
[2023-03-09 16:02] LABS: INFLUENZA A NEGATIVE (NEGATIVE); INFLUENZA B NEGATIVE (NEGATIVE); RESPIRATORY SYNCTIAL VIRUS NEGATIVE (NEGATIVE); SARS-CoV-2 Xpert Express NEGATIVE (NEGATIVE)
[2023-03-09 18:05] VITALS: O2SAT 96
[2023-03-09 18:23] LABS: Appearance Clear (Clear); Bacteria None Seen /HPF (None Seen); Bilirubin Negative (Negative); Blood Negative (Negative); Epithelial Cells None Seen /HPF (None Seen); Glucose, Urine Negative (Negative); Hyaline Casts NONE SEEN /LPF (0-2); Ketones Negative (Negative); Leukocyte Esterase Negative (Negative); Nitrite Negative (Negative); Protein,Urine Dip Negative (Negative); RBC 0-2 /HPF (0-5); Specific Gravity <=1.005 (1.005-1.030); Urobilinogen 0.2 mg/dL (0.2); WBC 0-2 /HPF (0-5)
[2023-03-09 18:24] LABS: ADD URINE CULTURE? NO (NO)
[2023-03-09 19:02] VITALS: BP 172/81; PULSE 64; RESP 16
== END 2023-03-09 19:15 | disposition home or self-care (01) ==
LOC: ED 14:05
DX: E05.90 Thyrotoxicosis, unspecified without thyrotoxic crisis or storm (principal); M25.512 Pain in left shoulder; M79.602 Pain in left arm; R11.0 Nausea; I10 Essential (primary) hypertension; R53.83 Other fatigue; E78.5 Hyperlipidemia, unspecified; Z79.899 Other long term (current) drug therapy; Z20.828 Contact with and (suspected) exposure to other viral communicable diseases
CPT/HCPCS: 0241U; 36000; 36415; 80053; 81001; 83880; 84439; 84443; 84484; 85025; 85610; 86308; 87040; 93005; 94760; 99284; Q0162; A9270-GY

== ENCOUNTER 2023-06-09 09:23 | Emergency (ER) | payer MEDICARE, OTHER ==
[2023-06-09 09:39] VITALS: TEMP 97.5
--- NOTE | 2023-06-09 09:52 | ERPHSYRPT ---
- History of Present Illness Time Seen by Provider: 06/09/23 09:51 Source: patient Patient Subjective Stated Complaint: hypertension with chest burning Triage Nursing Assessment: Pt brought to the ER by her daughter, hypertensive, denies pain at this time, pt walked into the ER room holding her daughters arm, pulses normal, skin n/w/d, S1-S2 heard, omar lower ext edema, took a nitro this morning due to burning across her chest, pt does have acid reflux, pt had fried mushrooms/cottage cheese/corn casserole/pulled pork last night Physician History: 87yo f presents via private vehicle for chest discomfort and elevated BP at home that started this AM. Pt states she had a brief episode of band like burning in her chest this AM that resolved after about 30min of sitting up. Pt reports she took her BP at home this AM and it was 170s/90s, states that is high for her and made her concerned. Pt denies any GAR, vision changes, changes in speech, confusion, numbness/tingling in face or extremities. Pt denies radiation of pain into back/neck/shoulder, denies n/v/diaphoresis. Pt does have hx of HTN on 3 antihypertensives, anxiety, acid reflux. Timing/Duration: today Activities at Onset: none Quality: burning Location: central Chest Pain Radiation: no radiation Severity of Pain-Max: mild Severity of Pain-Current: none Modifying Factors: Improves With: sitting up Nitro Today/Relief: 0.4 mg x 1 (taken at 04:30) Aspirin Treatment Today: 81 mg x 1 Associated Symptoms: heartburn, chest pain, No nausea, No vomiting, No shortness of breath, No chills, No fever, No headaches, No malaise, No weakness Allergies/Adverse Reactions: amoxicillin [From Augmentin] Allergy (Verified 06/09/23 09:39) cefdinir [From Omnicef] Allergy (Verified 06/09/23 09:39) clarithromycin [From Biaxin] Allergy (Verified 06/09/23 09:39) clavulanic acid [From Augmentin] Allergy (Verified 06/09/23 09:39) levofloxacin [From Levaquin] Allergy (Verified 06/09/23 09:39) muscle relaxer Allergy (Uncoded 06/09/23 09:39) Home Medications: Amlodipine Besylate [Norvasc] 2.5 mg PO DAILY 08/05/22 [History] Aspirin [Aspirin EC] 81 mg PO HS 08/05/22 [History] Calcium Carbonate [Calcium] 1,000 mg PO DAILY 08/05/22 [History] Cetirizine HCl [Zyrtec] 10 mg PO DAILY 08/05/22 [History] Levothyroxine Sodium 88 mcg PO DAILY 08/05/22 [History] Multivitamin 1 each PO DAILY 08/05/22 [History] Omeprazole 20 mg PO DAILY 08/05/22 [History] Pravastatin Sodium 80 mg PO HS 08/05/22 [History] Timolol Maleate 0.5% Eye [Timoptic 0.5% 5 ml Ophthalmic] 1 drop OP BID 08/05/22 [History] hydroCHLOROthiazide [Hydrochlorothiazide] 25 mg PO DAILY 08/05/22 [History] Losartan Potassium 25 mg PO DAILY 03/09/23 [History] Potassium Chloride 20 meq PO BID 06/09/23 [History] Hx Tetanus, Diphtheria Vaccination/Date Given: No Hx Influenza Vaccination/Date Given: Yes Hx Pneumococcal Vaccination/Date Given: Yes Travel Risk - International Travel Have you traveled outside of the country in past 3 weeks: No - Emerging Infectious Disease Are you exhibiting symptoms associated with any current EIDs: No - Review of Systems Constitutional: No Symptoms Eyes: No Vision Changes, No Double Vision Respiratory: No Symptoms Cardiac: Chest Pain, No Edema, No Palpitations, No Syncope Abdominal/Gastrointestinal: No Symptoms Genitourinary Symptoms: No Symptoms Musculoskeletal: No Symptoms Neurological: No Symptoms Psychological: Anxiety - Past Medical History Pertinent Past Medical History: Yes Neurological History: No Pertinent History ENT History: Glaucoma Cardiac History: Angina, Hypertension Respiratory History: No Pertinent History Endocrine Medical History: Hypothyroidism Musculoskeletal History: Arthritis, Osteoarthritis GI Medical History: Diverticulitis History: No Pertinent History Psycho-Social History: No Pertinent History Female Reproductive Disorders: No Pertinent History - Past Surgical History Past Surgical History: Yes Neuro Surgical History: No Pertinent History Cardiac: No Pertinent History Respiratory: No Pertinent History Gastrointestinal: Cholecystectomy Genitourinary: No Pertinent History Musculoskeletal: No Pertinent History Female Surgical History: No Pertinent History - Social History Smoking Status: Never smoker Exposure to second hand smoke: No Drug Use: none Patient Lives Alone: No - Nursing Vital Signs Nursing Vital Signs: Initial Vital Signs Temperature 97.5 F 06/09/23 09:30 Pulse Rate 69 06/09/23 09:30 Blood Pressure 174/77 06/09/23 09:30 O2 Sat by Pulse Oximetry 94 L 06/09/23 09:30 Pain Scale Pain Intensity 0 - Physical Exam General Appearance: no apparent distress, alert Neck Exam: normal inspection Respiratory Exam: normal breath sounds, lungs clear, airway intact, No chest tenderness, No respiratory distress, No diminished breath sounds Cardiovascular Exam: regular rate/rhythm, normal heart sounds, normal peripheral pulses, capillary refill <2 sec Gastrointestinal/Abdomen Exam: soft, No tenderness, No distention Neurologic Exam: alert, oriented x 3, cooperative SpO2 Interpretation: normal SpO2: 94 O2 Delivery: Room Air - Course EKG Interpreted by Me: RATE (65), Sinus Rhythm, Left Jefferson Deviation, Other (qtcb [id number]; no suggestion of ischemia) Ordered Tests: Active Orders 24 hr Category Date Time Status EKG-ER Only STAT Care 06/09/23 10:06 Active CHEST 1 VIEW (PORTABLE) Stat Exams 06/09/23 10:06 Taken CBC W DIFF Stat Lab 06/09/23 10:30 Completed CMP Stat Lab 06/09/23 10:30 Completed TROPONIN Q4H Lab 06/09/23 10:30 Completed TROPONIN Q4H Lab 06/09/23 13:29 Completed TROPONIN Q4H Lab 06/09/23 18:15 Ordered Lab/Rad Data: Laboratory Result Diagrams 06/09/23 10:30 06/09/23 10:30 Laboratory Results 06/09/23 06/09/23 06/09/23 Range/Units 13:29 10:30 10:30 WBC (4.0-10.5) x10^3/uL RBC (4.1-5.4) x10^6/uL Hgb (12.0-16.0) g/dL Hct (35-47) % MCV (78-100) fL MCH (26-32) pg MCHC (32-36) g/dL RDW (11.5-14.0) % Plt Count (150-450) x10^3/uL MPV (7.5-11.0) fL Gran % (36.0-66.0) % Immature Gran % (Auto) (0.00-0.4) % Nucleat RBC Rel Count (0.00-0.1) % Eos # (Auto) (0-0.5) x10^3/uL Immature Gran # (Auto) (0.00-0.03) x10^3u/L Absolute Lymphs (auto) (1.0-4.6) x10^3/uL Absolute Monos (auto) (0.0-1.3) x10^3/uL Absolute Nucleated RBC (0.00-0.01) x10^3u/L Lymphocytes % (24.0-44.0) % Monocytes % (0.0-12.0) % Eosinophils % (0.00-5.0) % Basophils % (0.0-0.4) % Absolute Granulocytes (1.4-6.9) x10^3/uL Basophils # (0-0.4) x10^3/uL Sodium 136 (135-145) mmol/L Potassium 3.8 (3.5-5.1) mmol/L Chloride 105 (98-107) mmol/L Carbon Dioxide 26 (22-30) mmol/L Anion Gap 8.8 (5-15) MEQ/L BUN 17 (7-17) mg/dL Creatinine 0.72 (0.52-1.04) mg/dL Estimated GFR 81.9 ML/MIN Glucose 95 (74-106) mg/dL Calcium 9.9 (8.4-10.2) mg/dL Total Bilirubin 0.80 (0.2-1.3) mg/dL AST 33 (14-36) U/L ALT 20 (0-35) U/L Alkaline Phosphatase 62 (38-126) U/L Troponin I < 0.012 < 0.012 (0.000-0.033) ng/mL Serum Total Protein 7.0 (6.3-8.2) g/dL Albumin 4.2 (3.5-5.0) g/dL 06/09/23 Range/Units 10:30 WBC 4.6 (4.0-10.5) x10^3/uL RBC 4.07 L (4.1-5.4) x10^6/uL Hgb 12.4 (12.0-16.0) g/dL Hct 36.7 (35-47) % MCV 90.2 (78-100) fL MCH 30.5 (26-32) pg MCHC 33.8 (32-36) g/dL RDW 12.9 (11.5-14.0) % Plt Count 218 (150-450) x10^3/uL MPV 9.5 (7.5-11.0) fL Gran % 64.9 (36.0-66.0) % Immature Gran % (Auto) 0.2 (0.00-0.4) % Nucleat RBC Rel Count 0.0 (0.00-0.1) % Eos # (Auto) 0.16 (0-0.5) x10^3/uL Immature Gran # (Auto) 0.01 (0.00-0.03) x10^3u/L Absolute Lymphs (auto) 1.04 (1.0-4.6) x10^3/uL Absolute Monos (auto) 0.35 (0.0-1.3) x10^3/uL Absolute Nucleated RBC 0.00 (0.00-0.01) x10^3u/L Lymphocytes % 22.7 L (24.0-44.0) % Monocytes % 7.6 (0.0-12.0) % Eosinophils % 3.5 (0.00-5.0) % Basophils % 1.1 (0.0-0.4) % Absolute Granulocytes 2.98 (1.4-6.9) x10^3/uL Basophils # 0.05 (0-0.4) x10^3/uL Sodium (135-145) mmol/L Potassium (3.5-5.1) mmol/L Chloride (98-107) mmol/L Carbon Dioxide (22-30) mmol/L Anion Gap (5-15) MEQ/L BUN (7-17) mg/dL Creatinine (0.52-1.04) mg/dL Estimated GFR ML/MIN Glucose (74-106) mg/dL Calcium (8.4-10.2) mg/dL Total Bilirubin (0.2-1.3) mg/dL AST (14-36) U/L ALT (0-35) U/L Alkaline Phosphatase (38-126) U/L Troponin I (0.000-0.033) ng/mL Serum Total Protein (6.3-8.2) g/dL Albumin (3.5-5.0) g/dL - Progress Progress: improved Air Movement: good Progress Note: 06/09/23 14:27 cp completely resolved vitals stable bp still mildly elevated 163/60 resting comfortably pt requesting to go home HEART score: 1 plan for dc home w/ close f/u w/ PCP Dr Barbosa office, Intraoperative Neuro Tech Dr Salgado likely 2/2 GERD vs anxiety - pt has significant life stressors occurring this week instructed to return to ED if: chest discomfort worsens, start to develop vision changes/headaches, develop pain radiating into shoulder, jaw, neck Patient and daughter voiced understanding of plan and all questions were answered Blood Culture(s) Obtained: No Antibiotics given: No - Departure Departure Disposition: Home Clinical Impression: Chest pain, rule out acute myocardial infarction, Anxiety GERD (gastroesophageal reflux disease) Qualifiers: Esophagitis presence: esophagitis presence not specified Qualified Code(s): K21.9 - Gastro-esophageal reflux disease without esophagitis Condition: Stable Critical Care Time: No Referrals: REFUGIO WEBB [NON-STAFF Y W/O PRIVILEGES] - Follow up/PCP as directed Additional Instructions: plan for dc home w/ close f/u w/ PCP Dr Barbosa office, Intraoperative Neuro Tech Dr Salgado likely 2/2 GERD vs anxiety - pt has significant life stressors occurring this week instructed to return to ED if: chest discomfort worsens, start to develop vision changes/headaches, develop pain radiating into shoulder, jaw, neck
[2023-06-09 10:41] LABS: Absolute Neutrophil Ct (ANC) 2.98 x10^3/uL (1.4-6.9); BASOPHIL % 1.1 % (0.0-0.4); Basophil (Absolute #) 0.05 x10^3/uL (0-0.4); Eosinophil % 3.5 % (0.00-5.0); Eosinophil (Absolute #) 0.16 x10^3/uL (0-0.5); Hematocrit 36.7 % (35-47); Hemoglobin 12.4 g/dL (12.0-16.0); IMMATURE GRAN # 0.01 x10^3u/L (0.00-0.03); IMMATURE GRAN % 0.2 % (0.00-0.4); Lymphocyte (Absolute #) 1.04 x10^3/uL (1.0-4.6); Lymphocytes % 22.7 % (24.0-44.0); Mean Cell Volume 90.2 fL (78-100); Mean Corpuscular Hemoglobin 30.5 pg (26-32); Mean Corpuscular Hgb Concent. 33.8 g/dL (32-36); Mean Platelet Volume 9.5 fL (7.5-11.0); Monocyte (Absolute #) 0.35 x10^3/uL (0.0-1.3); Monocytes % 7.6 % (0.0-12.0); Neutrophil % 64.9 % (36.0-66.0); Platelet Count 218 x10^3/uL (150-450); Red Blood Count 4.07 x10^6/uL (4.1-5.4); Red Cell Distribution Width 12.9 % (11.5-14.0); White Blood Count 4.6 x10^3/uL (4.0-10.5)
[2023-06-09 10:52] LABS: ALBUMIN 4.2 g/dL (3.5-5.0); ANION GAP 8.8 MEQ/L (5-15); BILIRUBIN,TOTAL 0.8 mg/dL (0.2-1.3); Calcium 9.9 mg/dL (8.4-10.2); Creatinine 1 0.72 mg/dL (0.52-1.04); EST GLOMERULAR FILTRATION RATE 81.9 ML/MIN; Potassium 3.8 mmol/L (3.5-5.1)
[2023-06-09 14:09] VITALS: BP 163/60; PULSE 55; RESP 18
[2023-06-09 14:33] VITALS: O2SAT 94
--- NOTE | 2023-06-09 19:50 | XRAY ---
Indication: Chest pain. Comparison: August 05, 2022 Portable chest remains hyperinflated. No focal infiltrate, consolidation, or large effusion. Heart is not enlarged. Bony thorax intact again with osteopenia, degenerative changes, and scoliosis. Impression: Continued nonacute chest with chronic features.
== END 2023-06-09 14:42 | disposition home or self-care (01) ==
LOC: ED 09:23
DX: R07.9 Chest pain, unspecified (principal); F41.9 Anxiety disorder, unspecified; K21.9 Gastro-esophageal reflux disease without esophagitis; I10 Essential (primary) hypertension; Z79.899 Other long term (current) drug therapy
CPT/HCPCS: 36415; 71045; 80053; 84484; 85025; 93005; 99284